=== PATIENT | male | born 1995 | race Caucasian/White ===

== ENCOUNTER 2016-12-16 10:14 | Inpatient (IN) | payer MEDICAID, OTHER ==
[~2016-12-16] VITALS: Ht 172.7 cm; Wt 68.8 kg
[2016-12-16 09:50] VITALS: BP 130/64; PULSE 86; RESP 16; TEMP 98.2; O2SAT 98
[2016-12-16] MEDS ORDERED: LORazepam 2 MG/ML VIAL IM PRN ×4 (11:45)
[2016-12-16] MEDS ORDERED: ACETAMINOPHEN 325 MG TAB PO PRN (11:45)
[2016-12-16] MEDS ORDERED: MAGNESIUM HYDROXIDE SUSP 30 ML CUP PO PRN (11:45)
[2016-12-16] MEDS ORDERED: LORazepam 2 MG TAB PO PRN (11:45)
[2016-12-16] MEDS ORDERED: FLUMAZENIL 0.5 MG/5 ML VIAL IV PUSH PRN (11:45)
[2016-12-16] MEDS ORDERED: ALUMINUM/MAGNESIUM/SIMETH 30 ML CUP PO PRN (11:45)
[2016-12-16] MEDS ORDERED: GABA100C4 PO (11:53)
[2016-12-16] MEDS: LORazepam 1 MG TAB PO PRN ×2 (11:59→18:23)
[2016-12-16] MEDS: NICOTINE 21 MG/24 HR PATCH T-DERMAL SCH (12:00)
[2016-12-16] MEDS: REMOVE OLD NICOTINE PATCH T-DERMAL SCH (12:00)
--- NOTE | 2016-12-16 13:28 | HHI.HP ---
Provisional Diagnosis Admission Date Dec 16, 2016 at 10:14 [place] I. 1. Adjustment disorder with mixed anxiety and depression Rule out drug-induced mood disorder 2. Alcohol dependence, with withdrawal, uncomplicated [place] II. Deferred [place] V. GAF is 45 presently Certification of Person's Competence To Provide Express and Informed Consent I have personally examined Constantino Vo , a person being served at [facility] on, Dec 16, 2016 13:28. Express and informed consent means consent voluntarily given in writing, by a competent person, after sufficient explanation and disclosure of the subject matter involved to enable the person to make a knowing and willful decision without any element of force, fraud, deceit, duress, or other form of constraint or coercion. This person is 18 years of age or older, is not now known to be incompetent to consent to treatment with a guardian advocate, and does not have a health care surrogate or proxy currently making medical treatment decisions. I have found this person to be one of the following: [x] Competent to provide express and informed consent, as defined above, for voluntary admission to this facility and is competent to provide express and informed consent for treatment. He/she has the consistent capacity to make well reasoned, willful, and knowing decisions concerning his or her medical or mental health treatment. The person fully and consistently understands the purpose of the admission for examination/placement and is fully capable of personally exercising all rights assured under [place] Incompetent to provide express and informed consent to voluntary admission, and this is incompetent to provide express and informed consent to treatment. The person must be transferred to involuntary status and a petition for a guardian advocate filed with the Circuit Court. [] Refusing to provide express and informed consent to voluntary admission but is competent to provide express and informed consent for treatment. The person must be discharged or transferred to involuntary status. Form shall be completed within 24 hours of a person's arrival at the receiving facility and filed in the clinical record of each person: 1. Admitted on a voluntary basis 2. Permitted to provide express and informed consent to his/her own treatment 3. Allowed to transfer from involuntary to voluntary status 4. Prior to permitting a person to consent to his or her own treatment after having been previously found incompetent to consent to treatment. History of Present Illness Capacity: Has Capacity HPI Mr. Vo is a 21-year-old male with a reported history of ADHD who presents in transfer from [facility] under a Benjamin act. Reviewing the records from outside hospital, I see the patient presented there after he was found intoxicated and unresponsive outside of a [employer] restaurant. He allegedly articulated some sort of suicidal ideation at outside hospital and was placed under a Benjamin act. Reviewing her own electronic medical record, it appears this is patient's first visit to [place]. Patient seen and examined with counselor. Chart reviewed. Case discussed with nursing staff. On my examination today, the patient denies any suicidal or homicidal ideation. He does say that he is tired of being an alcoholic and notes that he gets quite emotional when he drinks. He is desirous of detoxification services. Mood is presently somewhat down and reactive to his circumstance. Feels somewhat generally anxious, no panic. No hypomanic or manic symptoms noted. He denies any audiovisual hallucinations, and I can elicit no delusional beliefs. The remainder of the psychiatric ROS is negative. Past psychiatric history: Patient reports a prior history of ADHD. He is not currently under the care of a psychiatrist. He denies any history of psychiatric admissions or suicide attempts. Review of Systems Except as stated in HPI: all other systems reviewed are Neg Past Psych History Psychological trauma history Patient denies any history of trauma Violence risk - others (6 mos) Lower imminent risk. No homicidal ideation. Patient does have a history of battery charges but no other known history of violence. No access to guns or firearms. No evidence of mental illness that might confer risk for violence. Substance use is a risk factor. Violence risk - self (6 mos) Lower imminent risk for suicide but elevated because of sequelae of his alcohol use issues. Substance Abuse History Drugs/Alcohol past 12 months Patient reports that he drinks at least a case of beer daily. He is blacking out. He does endorse a history of withdrawal seizures. He reports that he was detoxified at a facility in [place] in mid-October of this year but relapsed quickly to drinking. He also smokes cannabis at least twice a week. He occasionally uses tobacco. Past Family Social History Coded Allergies: No Known Allergies (Unverified , 12/16/16) Past Medical History Patient denies any history of medical issues Reported Medications Gabapentin 100 Mg Eac261 Mg PO TID #90 CAP Ref 0 12/16/16 Current Medications Medications (Trade) Dose Ordered Sig/Warren Route Start Time Stop Time Status Last Admin (Tylenol) 650 mg Q4H PRN PO 12/16/16 11:45 (Milk Of Magnesia Liq) 30 ml DAILY PRN PO 12/16/16 11:45 (Mag-Al Plus Susp Liq) 30 ml Q6H PRN PO 12/16/16 11:45 (Habitrol 21 Mg Patch.24 Hr) 1 patch DAILY T-DERMAL 12/16/16 12:00 12/16/16 12:00 Miscellaneous Information 1 HS T-DERMAL 12/16/16 21:00 (Ativan) 1 mg Q4H PRN PO 12/16/16 11:45 12/16/16 11:59 (Ativan Inj) 1 mg Q4H PRN IM 12/16/16 11:45 (Ativan) 2 mg Q2H PRN PO 12/16/16 11:45 (Ativan Inj) 2 mg Q2H PRN IM 12/16/16 11:45 (Ativan Inj) 2 mg Q1H PRN IM 12/16/16 11:45 (Ativan Inj) 2 mg Q15M PRN IM 12/16/16 11:45 (Romazicon Inj) 0.2 mg Q1M PRN IV PUSH 12/16/16 11:45 Family History Patient reports that he was adopted but knows that his biological father was an alcoholic. Social History Patient is presently homeless. He lives in a tent. He is single with no children. He has a GED. He does not work and has no income. He denies any history. He has a history of trespassing and battery charges. He denies any access to guns or firearms. He does endorse some jainism beliefs. Patient's Strengths (min. 2) In a monitored setting. Verbally fluent. Physical Exam Physical examination completed at outside hospital. On my examination today, the patient appears to be well-nourished and well-developed and in no acute physical distress. He is somewhat tremulous but has no diaphoresis or mydriasis or other signs of acute alcohol withdrawal. No abnormal motor movements noted otherwise. Labs and vital signs reviewed: Vital Signs T98.2, P86, R16, BP 130/64, SpO2 98%RA. Lab Results EKG NSR QTc 423ms CMP reveals AST 61, otherwise unremarkable, CBC Hgb 13.1, otherwise unremarkable, UTox Neg, EtOH 377, UA bland. Mental Status Examination Patient is in hospital gown. He is fairly well groomed. He is awake and alert and oriented 3. No evidence of delirium. Motor exam as above. Speech is within normal limits for rate, tone and volume. Language and fund of knowledge seemed average. Memory intact. Mood somewhat down and affect blunted. Thought process linear. No loosening of associations. No evident delusions. Denies audiovisual hallucinations. Denies suicidal or homicidal ideation. Insight and judgment are fair to poor. Assessment & Plan Problem List: (1) Adjustment disorder ICD Code: F43.20 (2) Alcohol dependence ICD Code: F10.20 Assessment & Plan This is a 21-year-old male with psychiatric history as detailed above who presents in transfer from outside hospital under a Benjamin act. Benjamin act alleges that the patient articulated suicidal ideation although he denies this to me. He does admit to feeling somewhat depressed and anxious in the context of his ongoing struggles with alcohol use. He has a history of withdrawal seizures, and I do not think he is safe for ambulatory detox at this time. I did endeavor to get the patient over to [facility], but their detox center is full. I will admit the patient to the inpatient psychiatric unit for safety and observation. Admitted inpatient. Voluntary status. Remeron 15 mg at bedtime for mood. Librium taper. CIWA with Ativan for any breakthrough withdrawal. Thiamine and folate. Seizure and fall precautions. Vitals every shift. Counselor to see. Disposition planning. Estimated length of stay: Approximately 5 days. Discharge Planning Pending stabilization Request HC Surrog/Guard Advoc?: No Problem Qualifiers (1) Adjustment disorder: Qualified Code: F43.23 - Adjustment disorder with mixed anxiety and depressed mood (2) Alcohol dependence: Qualified Code: F10.230 - Alcohol dependence with uncomplicated withdrawal Baldomero Vail MD Dec 16, 2016 13:28
[2016-12-16] MEDS: chlordiazePOXIDE 25 MG CAP PO SCH (18:23)
[2016-12-16 18:34] VITALS: BP 141/69; PULSE 76; RESP 18; TEMP 98; O2SAT 100
[2016-12-16] MEDS: MIRTAZAPINE 15 MG TAB PO SCH (21:00)
[2016-12-17 01:32] VITALS: BP 131/87; PULSE 73; RESP 18; TEMP 97.8; O2SAT 99
[2016-12-17 06:17] VITALS: BP 118/64; PULSE 56; RESP 18; TEMP 98.3; O2SAT 98
[2016-12-17] MEDS: FOLIC ACID 1 MG TAB PO SCH (09:15)
[2016-12-17] MEDS: THIAMINE HCL 100 MG TAB PO SCH (09:15)
[2016-12-17] MEDS: chlordiazePOXIDE 25 MG CAP PO SCH ×4 (09:16→21:59)
[2016-12-17] MEDS: NICOTINE 21 MG/24 HR PATCH T-DERMAL SCH (09:16)
[2016-12-17 11:17] LABS: ANION GAP 8 MEQ/L (5-15); BICARBONATE 30.1 MEQ/L (21.0-32.0); BLOOD UREA NITROGEN 9 MG/DL (7-18); CHLORIDE 103 MEQ/L (98-107); GLOMERULAR FILTRATION RATE 77 ML/MIN (>89); HDL CHOLESTEROL 177.7 MG/DL (40.0-60.0); LDL CHOLESTEROL 74 MG/DL (0-99); POTASSIUM 3.7 MEQ/L (3.5-5.1); SODIUM (NA) 141 MEQ/L (136-145)
--- NOTE | 2016-12-17 12:44 | HHI.PYPN ---
Subjective Remarks Patient remains somewhat sad and reclusive. However he is eating lunch. He is not a behavior problem. Review of Systems ROS Limitations: Clinical Condition Objective Alert: Yes [place]: Person, Place, Date, Situation Mood: Calm Affect: Euthymic Memory Intact: Immediate, Recent, Remote Hallucinations: Other Delusions: No Delusion Type: Other Suicidal: Ideation Homicidal: Ideation Insight/Judgment Impaired Labs Test 12/17/16 09:55 Sodium Level 141 MEQ/L Potassium Level 3.7 MEQ/L Chloride Level 103 MEQ/L Carbon Dioxide Level 30.1 MEQ/L Anion Gap 8 MEQ/L Blood Urea Nitrogen 9 MG/DL Creatinine 1.17 MG/DL Estimat Glomerular Filtration 77 ML/MIN Rate Random Glucose 94 MG/DL Calcium Level 10.1 MG/DL Triglycerides Level 82 MG/DL Cholesterol Level 268 MG/DL LDL Cholesterol 74 MG/DL HDL Cholesterol 177.7 MG/DL Cholesterol/HDL Ratio 1.50 RATIO Vitals/IOs Vital Signs Date Time Temp Pulse Resp B/P Pulse Ox O2 Delivery O2 Flow Rate FiO2 12/17/16 06:17 98.3 56 18 118/64 98 Assessment & Plan Problem List: (1) Adjustment disorder ICD Code: F43.20 (2) Alcohol dependence ICD Code: F10.20 Assessment & Plan Estimated LOS: 3 days not stable on medications yet. Justification for Cont. Inpt. Suicidal ideation Request HC Surrog/Guard Advoc?: No Problem Qualifiers (1) Adjustment disorder: Qualified Code: F43.23 - Adjustment disorder with mixed anxiety and depressed mood (2) Alcohol dependence: Qualified Code: F10.230 - Alcohol dependence with uncomplicated withdrawal Westley Hale MD Dec 17, 2016 12:44
[2016-12-17 14:33] LABS: HEMOGLOBIN A1a 1.2 %; HEMOGLOBIN A1b 0.8 %; HEMOGLOBIN Ao 86.5 %; HEMOGLOBIN F 0.6 %; HEMOGLOBIN P3 3.1 %
[2016-12-17] MEDS: LORazepam 1 MG TAB PO PRN (14:59)
[2016-12-17] MEDS: REMOVE OLD NICOTINE PATCH T-DERMAL SCH (21:00)
[2016-12-17] MEDS: MIRTAZAPINE 15 MG TAB PO SCH (22:00)
[2016-12-17 23:04] VITALS: BP 122/57; PULSE 70; RESP 18; TEMP 97.5; O2SAT 100
[2016-12-18 06:40] VITALS: BP 112/70; PULSE 76; RESP 15; TEMP 98.4; O2SAT 100
[2016-12-18] MEDS: chlordiazePOXIDE 25 MG CAP PO SCH ×3 (08:51→21:54)
[2016-12-18] MEDS: FOLIC ACID 1 MG TAB PO SCH (08:51)
[2016-12-18] MEDS: THIAMINE HCL 100 MG TAB PO SCH (08:51)
[2016-12-18] MEDS: NICOTINE 21 MG/24 HR PATCH T-DERMAL SCH (09:00)
--- NOTE | 2016-12-18 13:52 | HHI.PYPN ---
Subjective Remarks Patient was seen and case discussed with nursing. Patient is pleasant and cooperative with exam. Does have good insight into his drinking realizes "I am an alcoholic." Is very interested in getting into a rehabilitation program. his ciwa is a 2. There is no auditory visual hallucinations. No tremors, mild nausea, alert and oriented 4. His compliant with his medications. Denies depressed mood. Denies suicidal ideations intent or plan Objective Alert: Yes [place]: Person, Place, Date, Situation Mood: Calm Affect: Euthymic Memory Intact: Immediate, Recent, Remote Hallucinations: Other Delusions: No Delusion Type: Other Suicidal: Ideation (denies) Homicidal: Ideation (denies) Insight/Judgment Fair Vitals/IOs Vital Signs Date Time Temp Pulse Resp B/P Pulse Ox O2 Delivery O2 Flow Rate FiO2 12/18/16 06:40 98.4 76 15 112/70 100 Assessment & Plan Problem List: (1) Adjustment disorder ICD Code: F43.20 (2) Alcohol dependence ICD Code: F10.20 Assessment & Plan Continue current treatment plan Justification for Cont. Inpt. Patient will decompensate in a less restrictive setting Request HC Surrog/Guard Advoc?: No Problem Qualifiers (1) Adjustment disorder: Qualified Code: F43.23 - Adjustment disorder with mixed anxiety and depressed mood (2) Alcohol dependence: Qualified Code: F10.230 - Alcohol dependence with uncomplicated withdrawal Jose Donald DO Dec 18, 2016 13:52
[2016-12-18 18:00] VITALS: BP 133/79; PULSE 80; RESP 16; TEMP 98.6
[2016-12-18] MEDS: REMOVE OLD NICOTINE PATCH T-DERMAL SCH (21:00)
[2016-12-18] MEDS: MIRTAZAPINE 15 MG TAB PO SCH (21:51)
[2016-12-19 05:10] VITALS: BP 96/55; PULSE 58; RESP 16; TEMP 97.3; O2SAT 99
[2016-12-19] MEDS: chlordiazePOXIDE 25 MG CAP PO SCH (08:50)
[2016-12-19] MEDS: FOLIC ACID 1 MG TAB PO SCH (08:50)
[2016-12-19] MEDS: THIAMINE HCL 100 MG TAB PO SCH (08:50)
[2016-12-19] MEDS: NICOTINE 21 MG/24 HR PATCH T-DERMAL SCH (09:00)
--- NOTE | 2016-12-19 13:09 | HHI.PYPN ---
Subjective Remarks Patient was seen and case discussed with nursing. No signs of alcohol withdrawal, ciwa is 0. Per nursing is seclusive, getting out of his room to eat. Says he had a productive conversation with his sister and may continue to live with her. He again contributes his suicidal statements before admission to being under the influence Objective Alert: Yes [place]: Person, Place, Date, Situation Mood: Calm Affect: Restricted Memory Intact: Remote (intact) Hallucinations: Other (denies) Delusions: No Delusion Type: Other (denies) Suicidal: Ideation (denies) Homicidal: Ideation (denies) Insight/Judgment Fair Vitals/IOs Vital Signs Date Time Temp Pulse Resp B/P Pulse Ox O2 Delivery O2 Flow Rate FiO2 12/19/16 05:10 97.3 58 16 96/55 99 Assessment & Plan Problem List: (1) Adjustment disorder ICD Code: F43.20 (2) Alcohol dependence ICD Code: F10.20 Assessment & Plan Continue current treatment plan Justification for Cont. Inpt. Patient will decompensate in a less restrictive setting Request HC Surrog/Guard Advoc?: No Problem Qualifiers (1) Adjustment disorder: Qualified Code: F43.23 - Adjustment disorder with mixed anxiety and depressed mood (2) Alcohol dependence: Qualified Code: F10.230 - Alcohol dependence with uncomplicated withdrawal Jose Donald DO Dec 19, 2016 13:09
[2016-12-19 19:17] VITALS: BP 111/70; PULSE 71; RESP 17; TEMP 98.1; O2SAT 100
[2016-12-19] MEDS: REMOVE OLD NICOTINE PATCH T-DERMAL SCH (21:00)
[2016-12-19] MEDS: MIRTAZAPINE 15 MG TAB PO SCH (21:00)
[2016-12-19] MEDS: LORazepam 1 MG TAB PO PRN (23:52)
[2016-12-20 05:05] VITALS: BP 104/58; PULSE 56; RESP 16; TEMP 97.4; O2SAT 99
[2016-12-20] MEDS: NICOTINE 21 MG/24 HR PATCH T-DERMAL SCH (09:00)
[2016-12-20] MEDS: THIAMINE HCL 100 MG TAB PO SCH (09:08)
[2016-12-20] MEDS: chlordiazePOXIDE 25 MG CAP PO SCH (09:08)
[2016-12-20] MEDS: FOLIC ACID 1 MG TAB PO SCH (09:08)
--- NOTE | 2016-12-20 17:39 | HHI.DS ---
Psychiatry Discharge Summary Inpatient Psychiatric care?: Yes Advance Directive: No Reason Not Provided: DOES NOT HAVE Mental Health AdvanceDirective: No Health Care Proxy: No Admission Admission Date Dec 16, 2016 at 10:14 Admission Diagnosis: (1) Adjustment disorder ICD Code: F43.20 Brief History Mr. Vo is a 21-year-old male with a reported history of ADHD who presents in transfer from [facility] under a Benjamin act. Reviewing the records from outside hospital, I see the patient presented there after he was found intoxicated and unresponsive outside of a [employer] restaurant. He allegedly articulated some sort of suicidal ideation at outside hospital and was placed under a Benjamin act. Reviewing her own electronic medical record, it appears this is patient's first visit to [place]. Patient seen and examined with counselor. Chart reviewed. Case discussed with nursing staff. On my examination today, the patient denies any suicidal or homicidal ideation. He does say that he is tired of being an alcoholic and notes that he gets quite emotional when he drinks. He is desirous of detoxification services. Mood is presently somewhat down and reactive to his circumstance. Feels somewhat generally anxious, no panic. No hypomanic or manic symptoms noted. He denies any audiovisual hallucinations, and I can elicit no delusional beliefs. The remainder of the psychiatric ROS is negative. Past psychiatric history: Patient reports a prior history of ADHD. He is not currently under the care of a psychiatrist. He denies any history of psychiatric admissions or suicide attempts. Tobacco Use In Past 30 Days: Cigarettes But Not Daily Alcohol Use: 4 or More Times Per Week Hospital Course Patient participated in individual and group therapies. No procedures performed. At the time of discharge she was stable and looking forward to going home. Results Blood Pressure 104 / 58 Vital Signs Date Time Temp Pulse Resp B/P Pulse Ox O2 Delivery O2 Flow Rate FiO2 12/20/16 05:05 97.4 56 16 104/58 99 Laboratory Results Test 12/17/16 09:55 Hemoglobin A1c 5.2 % (4.3-6.0) Triglycerides Level 82 MG/DL (42-150) Cholesterol Level 268 MG/DL (120-200) LDL Cholesterol 74 MG/DL (0-99) HDL Cholesterol 177.7 MG/DL (40.0-60.0) Summary of Procedures None Pending results at discharge: No Medications # of Antipsychotic meds at D/C: 0 Approp Antipsych med options 1 - Minimum of three failed multiple trials of monotherapy. 2 - Documented plan to taper to monotherapy due to previous use of multiple meds OR cross-taper in progress at D/C. 3 - Documentation of augmentation of Clozapine. 4 - Justification other than those listed in allowable values 1-3, document here : Discharge Discharge Date: Dec 20, 2016 Discharge Diagnosis: (1) Adjustment disorder with mixed disturbance of emotions and conduct Diagnosis: Principal ICD Code: F43.25 Mental Status Exam at Disch Calm and pleasant and cooperative. Cognition intact. Verbally contracts for safety. No suicidal or homicidal ideation, plan or intent. No psychosis. Pt Condition on Discharge: Stable Discharge Disposition: Discharge Home Discharge Instructions Diet Instructions: As Tolerated, No Restrictions Activities you can perform: Regular-No Restrictions Scheduled Appointment: [facility] Discharge Time <= 30 minutes Discharge/Advance Care Plan Health Problems: (1) Adjustment disorder (2) Alcohol dependence Goals to promote your health * To prevent worsening of your condition and complications * To maintain your health at the optimal level Directions to meet your goals Take your medications as prescribed Follow your dietary instruction Follow activity as directed Keep your appointments as scheduled Take your immunizations and boosters as scheduled If your symptoms worsen call your PCP, if no PCP go to Urgent Care Center or Emergency Room For 21/03 questions related to your inpatient stay or results of tests pending at discharge, please contact Dr. Westley Hale at Smoking is Dangerous to Your Health. Avoid second hand smoking Problem Qualifiers (1) Adjustment disorder: Qualified Code: F43.23 - Adjustment disorder with mixed anxiety and depressed mood Westley Hale MD Dec 20, 2016 17:39
== END 2016-12-20 23:00 | disposition home or self-care (01) | DRG 897 ==
LOC: H270 10:14 → H260 12-17 16:09
PROVIDERS: ADMIT Psychiatry & Neurology Psychiatry; ATTEND Psychiatry & Neurology Psychiatry
DX: F10.239 Alcohol dependence with withdrawal, unspecified (principal); R45.851 Suicidal ideations; F43.23 Adjustment disorder with mixed anxiety and depressed mood; F90.9 Attention-deficit hyperactivity disorder, unspecified type; F12.90 Cannabis use, unspecified, uncomplicated; Z59.0 Homelessness; Z72.0 Tobacco use; Z81.1 Family history of alcohol abuse and dependence
CPT/HCPCS: 80048; 80061; 83036